=== PATIENT | male | born 1970 | race Caucasian/White ===

== ENCOUNTER 2017-11-22 07:29 | Day surgery (SDC) | payer OTHER ==
[2017-11-22] MEDS ORDERED: CIPROFLOXACIN 400 MG in D5W 200 ML IVPB (08:30)
[2017-11-22] MEDS ORDERED: PROPOFOL 20 ML (10:08)
[2017-11-22] MEDS ORDERED: ROCURONIUM 50 MG INJ ×2 (10:10→11:27)
[2017-11-22] MEDS ORDERED: FENTAnyl 50 MCG/ML VIAL (10:10)
[2017-11-22] MEDS ORDERED: ALBUTEROL 0.083% (NEB) 2.5 MG/3 ML AMP HHN (10:30)
[2017-11-22] MEDS ORDERED: DIPHENHYDRAMINE 50 MG INJ IV (10:30)
[2017-11-22] MEDS ORDERED: OXYCODONE/ACETAMINOPHEN (5/325) TAB PO ×2 (10:30)
[2017-11-22] MEDS ORDERED: KETOROLAC 30 MG INJ IV (10:30)
[2017-11-22] MEDS ORDERED: MEPERIDINE 25 MG INJ IV (10:30)
[2017-11-22] MEDS ORDERED: FENTAnyl 50 MCG/ML VIAL IV ×2 (10:30)
[2017-11-22] MEDS ORDERED: MIDAZOLAM 1 MG/ML 2 ML INJ IV (10:30)
[2017-11-22] MEDS ORDERED: HYDROmorphONE (0.2 MG/ML) 10ML SYG IV ×3 (10:30)
[2017-11-22] MEDS ORDERED: LABETALOL HCL 20MG INJ IV (10:30)
[2017-11-22] MEDS ORDERED: METOCLOPRAMIDE 10 MG INJ IV (10:30)
[2017-11-22] MEDS ORDERED: hydrALAzine 20 MG INJ IV (10:30)
[2017-11-22] MEDS ORDERED: EPHEDrine SULFATE 50 MG/5 ML SYG IV (10:30)
[2017-11-22] MEDS: IOHEXOL 300MG/ML 30 ML BTL (11:00)
[2017-11-22] MEDS ORDERED: SUGAMMADEX SODIUM 200 MG/2 ML VIAL IV (11:26)
[2017-11-22] MEDS ORDERED: LIDOCAINE 2% (SDV) 5 ML INJ (11:27)
[2017-11-22] MEDS: ONDANSETRON 4 MG INJ IV (12:09)
[2017-11-22] MEDS: FENTAnyl 50 MCG/ML VIAL IV (12:11)
== END 2017-11-22 14:08 | disposition home or self-care (01) ==
LOC: SDS 07:29
DX: N20.1 Calculus of ureter (principal); N35.9 Urethral stricture, unspecified; Z88.1 Allergy status to other antibiotic agents
CPT/HCPCS: 50590

== ENCOUNTER 2017-12-05 14:03 | Emergency (ER) | payer OTHER ==
[2017-12-05] MEDS ORDERED: AZTREONAM 1 GM/NS (PMX) 50 ML IVPB (17:34)
[2017-12-05] MEDS ORDERED: SODIUM CHLORIDE 0.9% 1L BAG IV* (17:34)
[2017-12-05] MEDS ORDERED: VANCOMYCIN 1 GM (PMX) 250 ML IVPB (18:00)
[2017-12-05 18:06] LABS: ADD MAN DIFF? NO
[2017-12-05 18:11] LABS: ABNORMAL IP MESSAGE 1; BASOPHILS % 0.3 % (0.0-2.0); EOSINOPHILS # 0.1 10^3/ul (0.0-0.5); EOSINOPHILS % 0.9 % (0.0-7.0); HEMATOCRIT 34.5 % (42.0-52.0); HEMOGLOBIN 11.9 g/dl (14.0-18.0); LYMPHOCYTES % 19.8 % (15.0-51.0); MEAN CORPUSCULAR HGB CONC 34.5 g/dl (32.0-37.0); MEAN CORPUSCULAR VOLUME 83.9 fl (82.0-101.0); MONOCYTE # 1.6 10^3/ul (0.3-0.9); MONOCYTES % 15.4 % (0.0-11.0); NEUTROPHIL # 6.5 10^3/ul (1.6-7.5); NEUTROPHILS % 63.1 % (39.0-77.0); PLATELET COUNT 287 10^3/UL (140-415); POSITIVE DIFF @See below; RED BLOOD COUNT 4.11 10^6/ul (4.70-6.10); RED CELL DISTRIBUTION WIDTH 11.9 % (11.5-14.5)
[2017-12-05 18:11] LABS: WHITE BLOOD COUNT 10.3 10^3/ul (4.8-10.8)
[2017-12-05 18:31] LABS: INR 1.01; PROTIME 13.4 Sec (11.9-14.9)
[2017-12-05 18:32] LABS: PARTIAL THROMBOPLASTIN TIME 37.4 Sec (25.0-35.0)
[2017-12-05 18:42] LABS: LACTIC ACID 1.6 mmol/L (0.5-2.0)
[2017-12-05 18:42] LABS: ADD UMIC YES; UR ASCORBIC ACID 40 mg/dL (NEGATIVE); UR BACTERIA MODERATE /HPF (NONE SEEN); UR BILIRUBIN (Dip) NEGATIVE (NEGATIVE); UR BLOOD (Dip) 3+ mg/dL (NEGATIVE); UR CLARITY CLOUDY (CLEAR); UR COLOR YELLOW (YELLOW); UR GLUCOSE (Dip) NEGATIVE (NEGATIVE); UR KETONES (Dip) NEGATIVE (NEGATIVE); UR LEUKOCYTE ESTERASE (Dip) 3+ Leu/ul (NEGATIVE); UR MUCUS FEW /HPF (NONE SEEN); UR NITRITE (Dip) POSITIVE (NEGATIVE); UR RBC 167 /HPF (0-5); UR SPECIFIC GRAVITY (Dip) 1.015 (1.003-1.030); UR TOTAL PROTEIN (Dip) 2+ mg/dl (NEGATIVE); UR TRANSITIONAL EPI CELL MODERATE /HPF (NONE SEEN); UR UROBILINOGEN (Dip) 2+ mg/dL (NEGATIVE); UR WBC > 182 /HPF (0-5)
[2017-12-05 18:43] LABS: ALANINE AMINOTRANSFERASE 46 IU/L (13-69); ALBUMIN/GLOBULIN RATIO 1.02; ALKALINE PHOSPHATASE 112 IU/L (42-121); ANION GAP 19 (8-16); ASPARTATE AMINO TRANSFERASE 33 IU/L (15-46); BILIRUBIN,INDIRECT 0.2 mg/dl (0-1.1); BILIRUBIN,TOTAL 0.2 mg/dl (0.2-1.3); BLOOD UREA NITROGEN 9 mg/dl (7-20); CARBON DIOXIDE 23 mmol/L (21-31); CHLORIDE 100 mmol/L (97-110); CREATININE 0.81 mg/dl (0.61-1.24); GLUCOSE 114 mg/dl (70-220); POTASSIUM 3.5 mmol/L (3.5-5.1); SODIUM 138 mmol/L (135-144); TOTAL PROTEIN 7.9 g/dl (6.1-8.1)
[2017-12-05 18:54] LABS: TROPONIN-I < 0.012 ng/ml (0.00-0.12)
== END 2017-12-05 18:16 | disposition home or self-care (01) ==
LOC: E/R 14:03
DX: N30.90 Cystitis, unspecified without hematuria (principal); R06.02 Shortness of breath
CPT/HCPCS: 71045; 80053; 81001; 83605; 84484; 85025; 85610; 85730; 87040; 87086; 99284-25

== ENCOUNTER 2018-12-07 12:11 | Emergency (ER) | payer OTHER | END 2018-12-07 15:05 | disposition home or self-care (01) | LOC: E/R 12:11 | DX: N28.89 Other specified disorders of kidney and ureter (principal); Z85.528 Personal history of other malignant neoplasm of kidney | CPT/HCPCS: 99282; Z7502 ==